=== PATIENT | female | born 1990 | race Caucasian/White ===

== ENCOUNTER 2018-03-31 19:05 | Emergency (ER) | payer MEDICAID ==
[~2018-03-31] VITALS: Ht 165.1 cm; Wt 106.6 kg
[2018-03-31 19:34] VITALS: Ht 165.1 cm; Wt 106.6 kg
[2018-03-31 20:27] LABS: BASOPHIL % 0.7 % (0-2); PLATELET COUNT 266 x10^3mcL (130-400); RED CELL DISTRIBUTION WIDTH 13.2 % (11.5-14.5)
[2018-03-31 20:29] LABS: CALCIUM 8.7 mg/dL (8.5-10.1); CARBON DIOXIDE 27.7 mmol/L (21-32); CHLORIDE SERUM 103 mmol/L (98-107); GFR1 > 60 mL/min; GLUCOSE SERUM 68 mg/dL (74-106); SODIUM SERUM 139 mmol/L (136-145)
[2018-03-31 20:34] LABS: ALBUMIN 3.6 g/dL (3.4-5.0); ALKALINE PHOSPHATASE 72 U/L (46-116); ALT/SGPT 25 U/L (14-59); AST/SGOT 17 U/L (15-37); BILIRUBIN TOTAL 0.26 mg/dL (0.20-1.00); LIPASE 230 IU/L (73-393); TOTAL PROTEIN, SERUM 7.3 g/dL (6.4-8.2)
[2018-03-31 21:44] VITALS: BP 137/86
== END 2018-03-31 21:44 | disposition home or self-care (01) ==
LOC: ED 19:05
PROVIDERS: Emergency Medicine
DX: N39.0 Urinary tract infection, site not specified (principal)
CPT/HCPCS: 36415; J7030

== ENCOUNTER 2018-05-26 13:32 | Emergency (ER) | payer SELFPAY ==
[~2018-05-26] VITALS: Ht 165.1 cm; Wt 107.0 kg
[2018-05-26 13:37] VITALS: Ht 165.1 cm; Wt 107.0 kg
[2018-05-26 14:49] VITALS: BP 112/85
== END 2018-05-26 14:49 | disposition home or self-care (01) ==
LOC: ED 13:32
DX: M54.5 Low back pain (principal); H57.12 Ocular pain, left eye; N83.209 Unspecified ovarian cyst, unspecified side; M53.82 Other specified dorsopathies, cervical region; M41.9 Scoliosis, unspecified

== ENCOUNTER 2018-06-08 10:48 | Emergency (ER) | payer SELFPAY ==
[~2018-06-08] VITALS: Ht 165.1 cm; Wt 107.5 kg
[2018-06-08 10:52] VITALS: BP 148/48; Ht 165.1 cm; Wt 107.5 kg
== END 2018-06-08 13:35 | disposition home or self-care (01) ==
LOC: ED 10:48
DX: S83.91XA Sprain of unspecified site of right knee, initial encounter (principal); M25.571 Pain in right ankle and joints of right foot; M19.90 Unspecified osteoarthritis, unspecified site; X58.XXXA Exposure to other specified factors, initial encounter; Y93.73 Activity, racquet and hand sports; Y92.39 Other specified sports and athletic area as the place of occurrence of the external cause; Y99.8 Other external cause status
CPT/HCPCS: Q0092

== ENCOUNTER 2018-12-24 16:22 | Emergency (ER) | payer MEDICAID ==
[~2018-12-24] VITALS: Ht 165.1 cm; Wt 103.4 kg
[2018-12-24 16:37] VITALS: Ht 165.1 cm; Wt 103.4 kg
[2018-12-24 18:02] VITALS: BP 122/73
== END 2018-12-24 18:02 | disposition home or self-care (01) ==
LOC: ED 16:22
DX: H92.01 Otalgia, right ear (principal); N83.209 Unspecified ovarian cyst, unspecified side; M41.9 Scoliosis, unspecified